=== PATIENT | male | born 1965 | race Caucasian/White ===

== ENCOUNTER 2019-03-23 03:42 | Observation (INO) ==
--- NOTE | 2019-03-23 04:29 | Emergency Department Note ---
Abdominal Pain HPI - General Chief Complaint: Constipation Stated Complaint: rectal pain Time Seen by Provider: 03/23/19 04:12 Source: patient Mode of arrival: ambulatory Limitations: no limitations - History of Present Illness HPI Narrative: Patient states that days ago he had a hard bowel movement and had severe pain near the perianal region. States subsequently he has had small stools but has been extremely painful with motion and bearing down. Been no bleeding no drainage patient normally has no problems with constipation issues.The pulse is 102 the respirations are 18 blood pressure 135/104 pulse ox is 91/92% rates the pain is an 05/20 - Related Data Home Medications Medication Instructions Recorded Confirmed No Known Home Meds 03/23/19 03/23/19 Allergies Allergy/AdvReac Type Severity Reaction Status Date / Time morphine Allergy Verified 03/23/19 03:47 Review of Systems All systems ED: reviewed and negative except as stated. Constitutional: Denies: fever, chills Eyes: Denies: eye pain ENT ED: Denies: ear pain Gastrointestinal: Reports: as per HPI, constipation, other Genitourinary: Reports: as per HPI. Denies: dysuria, frequency, urgency Abdominal Pain PMH - Past Medical History Medical history: Reports: non-contributory Family history: Reports: non-contributory - Social History Smoking status: Current every day smoker Alcohol use: Reports: Unknown Drug use: Reports: unknown Physical Exam Limitations: no limitations General appearance: alert Head: atraumatic, normocephalic Eye: Present: normal appearance, PERRL ENT: normal exam, normal oropharynx, mucous membranes moist Neck: Present: normal inspection, full ROM, trachea midline Chest: Present: normal inspection, symmetric chest wall rise. Absent: tendernes s Respiratory: Present: normal lung sounds bilaterally. Absent: respiratory distress, rales/crackles, wheezes Cardiovascular: Present: regular rate, normal rhythm. Absent: bradycardia, tachycardia Abdominal: Present: soft, normal bowel sounds. Absent: distention, tenderness, guarding, rebound, rigidity Rectal: Present: normal inspection, normal rectal tone, heme (-) stool, tenderness ( appears to have a perirectal abscess tenderness and bulging the lateral aspect of the rectal area) : Present: normal inspection Extremities: Present: normal inspection, full ROM Back: Present: normal inspection, full ROM Course Vital Signs Temperature 99.0 F 03/23/19 03:43 Pulse Rate 102 H 03/23/19 03:43 Respiratory Rate 18 03/23/19 03:43 Blood Pressure 135/104 03/23/19 03:43 Pulse Oximetry (%) 91 03/23/19 03:43 Temperature 99.0 F 03/23/19 03:43 Pulse Rate 76 03/23/19 04:23 Respiratory Rate 18 03/23/19 04:23 Blood Pressure 126/78 03/23/19 04:23 Pulse Oximetry (%) 92 03/23/19 04:23 Abdominal Pain - MDM Narrative Medical decision making narrative: Two-view abdomen negative. Patient on rectal exam reveals a perirectal abscess per Dr. Arambula contacted patient to be admitted - Lab Data Result diagrams: 03/23/19 04:00 Disposition Pt seen by TRUCKER/PA only: No Clinical Impression: Perirectal abscess Disposition: Xfer As Outpt/Obs ([facility]) Condition: Fair
[2019-03-23] MEDS ORDERED: ONDANSETRON 4 MG/2 ML VIAL IV ONE (04:37)
--- NOTE | 2019-03-23 04:38 | XRay Report ---
CLINICAL INFORMATION: LRQ abd pain COMPARISON: None. FINDINGS: The stool gas pattern is unremarkable. There is no free air, soft tissue mass, organomegaly or pathologic calcification. IMPRESSION: Normal abdomen Interpreted and Authenticated by: Sidney Smart 03/23/19
[2019-03-23] MEDS ORDERED: 0.9 % SODIUM CHLORIDE 1,000 ML IV ONE (04:39)
[2019-03-23] MEDS ORDERED: HYDROmorphone 2 MG/ML VIAL IV SCH (04:45)
[2019-03-23] MEDS ORDERED: cefTRIAXone 1 GM VIAL IV SCH (04:45)
[2019-03-23 04:47] LABS: Basophils # (Auto) 0 K/mcL (0.0-0.3); Basophils % (Auto) 0.1 % (0.0-2.0); Eosinophils # (Auto) 0.2 K/mcL (0.0-0.7); Eosinophils % (Auto) 1.3 % (0.0-7.0); Granulocytes % (Auto) 79.4 % (38.0-78.0); Hematocrit 46.1 % (41.0-55.0); Hemoglobin 16.2 g/dL (13.5-16.5); Lymphocytes # (Auto) 1.4 K/mcL (1.5-4.8); Lymphocytes % (Auto) 11.1 % (15.5-49.0); Mean Cell Volume 92.5 fL (80.0-100.0); Mean Corpuscular HGB Conc 35.3 g/dL (31.0-36.0); Mean Platelet Volume 7.6 fL (7.4-10.4); Monocytes % (Auto) 8.1 % (1.0-12.0); Platelet Count 259 K/mcL (140-440); RBC 4.98 M/mcL (4.50-5.90); Red Cell Distribution Width 11.5 % (11.5-14.5); WBC 12.6 K/mcL (4.5-11.0)
[2019-03-23] MEDS ORDERED: ACETAMINOPHEN 325 MG TABLET PO ONE ×2 (04:55→05:01)
[2019-03-23] MEDS: 0.9 % SODIUM CHLORIDE 1,000 ML IV SCH ×3 (06:10→17:11)
[2019-03-23] MEDS ORDERED: PANTOPRAZOLE 40 MG VIAL IV SCH (07:30)
[2019-03-23] MEDS: HYDROmorphone 2 MG/ML VIAL IV PRN ×3 (07:54→13:18)
--- NOTE | 2019-03-23 08:21 | XRay Report ---
CLINICAL INFORMATION: pre-op COMPARISON: None. FINDINGS: The heart size, mediastinum and pulmonary vessels are unremarkable. The lungs are clear. There are no effusions.. IMPRESSION: Normal chest. Interpreted and Authenticated by: Sidney Smart 03/23/19
[2019-03-23 08:32] LABS: ALT/SGPT 28 U/l (0-40); AST/SGOT 17 U/l (0-37); Albumin 3.6 gm/dL (3.2-5.2); Albumin/Globulin Ratio 1.2 (1.0-2.3); Alkaline Phosphatase 61 U/L (39-117); Bilirubin,Total 0.7 mg/dL (0.0-1.0); Blood Urea Nitrogen 8 mg/dl (6-20); Calcium 8.4 mg/dl (8.6-10.4); Carbon Dioxide 23 mmol/L (22-30); Chloride 104 mmol/L (96-108); Glomerular Filtration Rate 114; Glucose 96 mg/dL (70-105); Potassium 3.8 mmol/L (3.3-5.1); Sodium 140 mmol/L (133-145)
[2019-03-23 08:52] LABS: Prothrombin Time 13.7 sec (11.9-14.5)
--- NOTE | 2019-03-23 12:19 | General Surg History&Physical ---
History of Present Illness Patient information: Note initiated : 03/23/19 at 12:17 pm Service Date, if different from initiated Date: [] Patient: Ej Higgins 54 y/o M admitted on 03/23/19 for Rectal Pain. Chief Complaint: [] HPI: Mr. Higgins is a 54 year old M with history of right perirectal abscess. Patient developed some pressure-like pain with bowel movements on Wednesday of this week. It continued to increase in intensity The following day. On yesterday the pain became much worse and he noted that the swelling was much larger. He finally came to the emergency room late last night and has been admitted with a large perirectal abscess on the right side. He is afebrile but does have mild leukocytosis. Past History Past medical history: No chronic medical illness Past surgical history: Leeanna fundoplication 2016 Past family history: Mother alive age 74 in good health. Father age 67 due to ruptured abdominal aortic aneurysm. 2 brothers alive and well Past social history: Smokes one half pack of cigarettes per day for many years. Drinks wine regularly. Denies drug use. Single Medications and Allergies Home Medications Medication Instructions Recorded Confirmed Type No Known Home Meds 03/23/19 03/23/19 History Allergies Allergy/AdvReac Type Severity Reaction Status Date / Time morphine AdvReac Mild Vomiting Verified 03/23/19 07:21 Exam Temp Pulse Resp BP Pulse Ox 98 F 73 16 123/81 94 03/23/19 11:08 03/23/19 11:08 03/23/19 11:08 03/23/19 11:08 03/23/19 11:08 - General physical appearance well developed, well nourished, no distress - Eyes PERRL, normal ocular movement - ENT normal pinna, normal nares, normal mucosa, no hearing loss, no congestion - Head Head exam IM: Present: atraumatic, normocephalic - Neck no masses, no bruits, trachea midline, no lymphadenopathy, no venous distension - Cardiovascular Cardiovascular exam IM: Present: normal rate and rhythm - Respiratory normal expansion, normal respiratory effort, clear to percussion, clear to auscultation - Abdomen Abdomen: Present: soft, non tender, bowel sounds Hernia: Present: none - Genitourinary Present: normal penis with no external lesions - Rectum Rectum: Present: no hemorrhoids, no tenderness, no masses, no bleeding, other (marked swelling right perirenal space extending into right buttock with hardening and severe tenderness; mild swelling of hemorrhoids side of inflammatory lesion) - Integumentary Present: no rash, no growths, no abnormal pigmentation - Neurologic Present: normal coordination, normal sensation - Musculoskeletal Present: normal gait, normal posture - Psychiatric Present: oriented to time, oriented to person, oriented to place, speech is normal, memory intact Assessment and Plan (1) Perirectal abscess Patient is counseled for I&D of perirectal abscess and it will be done later today Status: Acute
[2019-03-23] MEDS ORDERED: SCOPOLAMINE 1 PATCH PATCH TOPICAL PRN (12:31)
[2019-03-23] MEDS ORDERED: IPRATROPIUM/ALBUTEROL 3 ML AMPUL.NEB NEB PRN ×2 (12:31→14:47)
[2019-03-23] MEDS ORDERED: fentaNYL 100 MCG/2 ML VIAL IV ONE (14:00)
[2019-03-23] MEDS ORDERED: PROPOFOL 200 MG/20 ML VIAL IV ONE (14:00)
[2019-03-23] MEDS ORDERED: HYDROmorphone 2 MG/ML VIAL ONE (14:00)
[2019-03-23] MEDS ORDERED: GLYCOPYRROLATE 0.2 MG/ML VIAL IV ONE (14:00)
[2019-03-23] MEDS ORDERED: KETAMINE HCL 50 MG/ML ML ONE (14:00)
[2019-03-23] MEDS ORDERED: ONDANSETRON 4 MG/2 ML VIAL ONE (14:00)
[2019-03-23] MEDS ORDERED: DEXAMETHASONE 10 MG/ML VIAL ONE (14:00)
[2019-03-23] MEDS ORDERED: LIDOCAINE HCL/PF 100 MG/5 ML SYRINGE IV ONE (14:00)
[2019-03-23] MEDS ORDERED: MIDAZOLAM 5 MG/5 ML VIAL ONE (14:00)
[2019-03-23 14:41] LABS: Appearance,Urine HAZY; Bacteria,Urine 0 /hpf (0); Bilirubin,Urine NEG (NEG); Color,Urine YELLOW; Culture Indicated,Urine NO; Glucose,Urine (UA) NEGATIVE (NEG); Ketones,Urine 20 mg/dL (NEG); Leukocyte Esterase,Urine 25 /uL (NEG); Mucus,Urine MANY /hpf (0); Nitrate,Urine NEG (NEG); Protein,Urine NEG (NEG); Specific Gravity,Urine 1.021 (1.000-1.035); Urine Blood NEG mg/dL (<0.03); Urine RBC 1 /hpf (0-1); Urine Squamous Epithelial Cell 1 /hpf (0-4); Urine WBC 6 /hpf (0-4); Urobilinogen,Urine NEG (NEG)
--- NOTE | 2019-03-23 14:41 | Brief Operative Note ---
Date of procedure: 03/23/19 Pre-op diagnosis: perirectal abscess,right Post-op diagnosis: other (perirectal abscess,right) Procedure: incision and drainage of perirectal abscess Grafts/Implants: No Anesthesia: GLMA Findings: large abscess of right perirectal space Complications: none Surgeon: Darrell Arambula Specimens Removed/Pathology: other (aerobic and anaerobic cultures) Condition: stable Disposition: PACU
[2019-03-23] MEDS ORDERED: ONDANSETRON 4 MG/2 ML VIAL IV PRN ×3 (14:44→16:21)
[2019-03-23] MEDS ORDERED: HYDROmorphone 2 MG/ML VIAL IV PRN ×2 (14:44→16:21)
[2019-03-23] MEDS ORDERED: MEPERIDINE 25 MG/ML SYRINGE IV PRN (14:47)
[2019-03-23] MEDS ORDERED: NALOXONE HCL 0.4 MG/ML VIAL IV PRN (14:47)
[2019-03-23] MEDS ORDERED: METOPROLOL TARTRATE 5 MG/5 ML VIAL IV PRN (14:47)
[2019-03-23] MEDS ORDERED: fentaNYL 100 MCG/2 ML VIAL IV PRN (14:47)
[2019-03-23] MEDS ORDERED: METHOCARBAMOL 1,000 MG/10 ML VIAL IV PRN (14:47)
[2019-03-23] MEDS ORDERED: ATROPINE SULFATE 0.4 MG/ML VIAL IV PRN (14:47)
[2019-03-23] MEDS ORDERED: PROMETHAZINE 25 MG/ML VIAL IV PRN (14:47)
[2019-03-23] MEDS ORDERED: KETOROLAC 30 MG/ML VIAL IV PRN (14:47)
[2019-03-23] MEDS ORDERED: ePHEDrine 50 MG/ML AMPUL IV PRN (14:47)
[2019-03-23] MEDS ORDERED: diphenhydrAMINE 50 MG/ML VIAL IV PRN (14:47)
[2019-03-23] MEDS ORDERED: FLUMAZENIL 0.1 MG/ML ML IV PRN (14:47)
[2019-03-23] MEDS ORDERED: LACTATED RINGERS 1,000 ML IV SCH (15:00)
[2019-03-23] MEDS ORDERED: PIPERACILLIN SODIUM/TAZOBACTAM 3.375 GM in DEXTROSE 5% IN WATER 50 ML IV SCH (15:00)
--- NOTE | 2019-03-23 15:14 | XRay Report ---
CLINICAL INFORMATION: Post op resp rate COMPARISON: 03/23/2019 FINDINGS: Mild airspace disease in left base is new - atelectasis versus infiltrate. The cardiomediastinal silhouette and pulmonary vessels are normal. No effusion IMPRESSION: Small infiltrate or atelectasis developing in the left base Interpreted and Authenticated by: Sidney Smart 03/23/19
[2019-03-23] MEDS: PANTOPRAZOLE 40 MG VIAL IV SCH (17:11)
[2019-03-23] MEDS: PIPERACILLIN SODIUM/TAZOBACTAM 3.375 GM in DEXTROSE 5% IN WATER 50 ML IV SCH (19:52)
[2019-03-23] MEDS ORDERED: oxyCODONE/APAP 10/325MG TABLET PO ONE (22:53)
[2019-03-23] MEDS: oxyCODONE/APAP 10/325MG TABLET PO PRN (23:03)
[2019-03-24] MEDS: PIPERACILLIN SODIUM/TAZOBACTAM 3.375 GM in DEXTROSE 5% IN WATER 50 ML IV SCH ×5 (00:15→23:44)
[2019-03-24] MEDS: 0.9 % SODIUM CHLORIDE 1,000 ML IV SCH ×4 (02:56→23:42)
[2019-03-24 05:36] LABS: Basophils # (Auto) 0 K/mcL (0.0-0.3); Basophils % (Auto) 0 % (0.0-2.0); Eosinophils # (Auto) 0 K/mcL (0.0-0.7); Eosinophils % (Auto) 0 % (0.0-7.0); Granulocytes % (Auto) 88.4 % (38.0-78.0); Hematocrit 40.7 % (41.0-55.0); Hemoglobin 13.6 g/dL (13.5-16.5); Lymphocytes # (Auto) 0.9 K/mcL (1.5-4.8); Lymphocytes % (Auto) 6.7 % (15.5-49.0); Mean Cell Volume 95.3 fL (80.0-100.0); Mean Corpuscular HGB Conc 33.5 g/dL (31.0-36.0); Mean Platelet Volume 7.8 fL (7.4-10.4); Monocytes # (Auto) 0.7 K/mcL (0.1-0.9); Monocytes % (Auto) 4.9 % (1.0-12.0); Platelet Count 235 K/mcL (140-440); RBC 4.27 M/mcL (4.50-5.90); WBC 13.9 K/mcL (4.5-11.0)
[2019-03-24] MEDS: oxyCODONE/APAP 10/325MG TABLET PO PRN ×3 (07:05→23:43)
[2019-03-24] MEDS: PANTOPRAZOLE 40 MG VIAL IV SCH ×2 (07:06→16:38)
--- NOTE | 2019-03-24 07:35 | XRay Report ---
CLINICAL INFORMATION: Shortness of breath COMPARISON: 03/23/2019 FINDINGS: The heart is minimally enlarged but unchanged. Mediastinum and pulmonary vessels are normal. Minor atelectasis in the left base has improved. The remaining lungs are clear. No effusions IMPRESSION: Improvement in minor left basilar atelectasis Interpreted and Authenticated by: Sidney Smart 03/24/19
--- NOTE | 2019-03-24 12:57 | General Surgery Progress Note ---
Subjective Patient reports: feels better, pain is less, tolerating a regular diet, flatus, no bowel movement, afebrile Narrative: Note initiated : 03/24/19 at 12:54 pm Service Date, if different from initiated Date: [] Patient: Ej Higgins 54 y/o M admitted on 03/23/19 for Rectal Pain. Chief Complaint: [patient is stable. He has much less pain. He does have some moderate incisional discomfort. Drainage is decreasing. Cultures are still pending. White blood count 13.9, hemoglobin 13.6.] Objective Temp Pulse Resp BP Pulse Ox 98.7 F 51 L 20 101/62 95 03/24/19 11:39 03/24/19 04:00 03/24/19 11:39 03/24/19 11:39 03/24/19 11:39 - Additional Data Intake & Output - Last 24 hours: Intake & Output 03/22/19 03/23/19 03/24/19 03/25/19 05:59 05:59 05:59 05:59 Intake Total 899 5375 50 Output Total 2880 Balance 899 2495 50 Weight 196 lb 8 oz 199 lb 8 oz - General physical appearance well developed, well nourished, no distress - Eyes PERRL, normal ocular movement - ENT normal pinna, normal nares, normal mucosa, no hearing loss, no congestion - Neck no masses, no bruits, trachea midline, no lymphadenopathy, no venous distension - Respiratory normal expansion, normal respiratory effort, clear to auscultation - Cardiovascular Cardiovascular exam: Present: normal rate and rhythm, RRR, +S1, +S2. Absent: JVD, tachycardia - Abdomen non tender, bowel sounds (present), surgical scars (none), masses (none) - Rectum normal sphincter tone, no masses, no bleeding, other (decreased perianal tenderness with significant reduction in induration) - Integumentary no rash, no growths, no abnormal pigmentation - Neurologic normal coordination, normal sensation - Musculoskeletal normal gait, normal posture - Psychiatric oriented to time, oriented to person, oriented to place, speech is normal, memory intact - Labs 03/24/19 04:10 03/23/19 07:26 Assessment and Plan (1) Perirectal abscess Status: Acute Assessment and plan: Continue IV antibiotics. Saline lock IV. Wait for final cultures before discharge Current Visit: Yes - Time Spent With Patient Total time spent is greater than 50% in coordination of care (as documented) at patient's floor/unit and/or counseling patient:
[2019-03-25] MEDS: PIPERACILLIN SODIUM/TAZOBACTAM 3.375 GM in DEXTROSE 5% IN WATER 50 ML IV SCH ×2 (05:12→12:13)
[2019-03-25] MEDS: oxyCODONE/APAP 10/325MG TABLET PO PRN ×2 (05:15→12:29)
[2019-03-25 06:25] LABS: Basophils # (Auto) 0 K/mcL (0.0-0.3); Basophils % (Auto) 0.4 % (0.0-2.0); Eosinophils # (Auto) 0.1 K/mcL (0.0-0.7); Eosinophils % (Auto) 1.6 % (0.0-7.0); Granulocytes % (Auto) 60.5 % (38.0-78.0); Hemoglobin 12.7 g/dL (13.5-16.5); Lymphocytes # (Auto) 2.4 K/mcL (1.5-4.8); Lymphocytes % (Auto) 27.8 % (15.5-49.0); Mean Cell Volume 96.1 fL (80.0-100.0); Mean Corpuscular HGB Conc 33.5 g/dL (31.0-36.0); Mean Platelet Volume 8.1 fL (7.4-10.4); Monocytes # (Auto) 0.9 K/mcL (0.1-0.9); Monocytes % (Auto) 9.7 % (1.0-12.0); Platelet Count 233 K/mcL (140-440); RBC 3.95 M/mcL (4.50-5.90); Red Cell Distribution Width 12.4 % (11.5-14.5); WBC 8.8 K/mcL (4.5-11.0)
[2019-03-25] MEDS: PANTOPRAZOLE 40 MG VIAL IV SCH (06:57)
[2019-03-25] MEDS: 0.9 % SODIUM CHLORIDE 1,000 ML IV SCH (09:00)
--- NOTE | 2019-03-25 12:50 | Discharge Summary ---
Providers - Providers Patient information: Note initiated : 03/25/19 at 12:47 pm Service Date, if different from initiated Date: [] Patient: Ej Higgins 54 y/o M admitted on 03/23/19 for Rectal Pain. Chief Complaint: [] Date of admission: 03/23/19 Discharge date: 03/25/19 Attending physician: Darrell Arambula Hospitalization Hospital course: 54-year-old male who was admitted on 20 February with enlarged perirectal abscess. He underwent wide excision and drainage. Cultures grew out a gram-negative bacillus. He had elevated white blood count yesterday but it has returned to normal. Cultures have not returned definitively, but he will be discharged home on Levaquin for 7 days. He is otherwise stable. Discharge diagnosis: right perirectal abscess Reason for admission: , rectal pain & perirectal abscess Procedures: Excision, drainage and debridement of right perirectal abscess Pertinent studies/significant findings: None Complications: None Exam Temp Pulse Resp BP Pulse Ox 97.8 F 54 L 20 124/85 98 03/25/19 12:00 03/25/19 04:00 03/25/19 12:00 03/25/19 12:00 03/25/19 12:00 - General physical appearance well developed, well nourished, no distress - Eyes PERRL, normal ocular movement - ENT normal pinna, normal nares, normal mucosa, no hearing loss, no congestion - Head Head exam IM: Present: atraumatic, normocephalic - Neck no masses, no bruits, trachea midline, no lymphadenopathy, no venous distension - Cardiovascular Cardiovascular exam IM: Present: normal rate and rhythm - Respiratory normal expansion, normal respiratory effort, clear to percussion, clear to auscultation - Abdomen Abdomen: Present: soft, non tender, bowel sounds Hernia: Present: none - Genitourinary Present: normal penis with no external lesions - Rectum Rectum: Present: normal sphincter tone, no hemorrhoids, no masses, other (significant decrease in induration and swelling of right pararectal space; moderate amount of serosanguineous drainage) - Integumentary Present: no rash, no growths, no abnormal pigmentation - Neurologic Present: normal coordination, normal sensation - Musculoskeletal Present: normal gait, normal posture - Psychiatric Present: oriented to time, oriented to person, oriented to place, speech is normal, memory intact Discharge Plan - Patient/Caregiver Discharge Instructions Activity: increase activity as tolerated Diet: Regular Diet Additional Instructions: May shower as needed. Use perineal pads to protect clothing. Follow-up in the office in 2 weeks - Follow up Plan Follow up with: Darrell Arambula MD [Physician] - 04/10/19 9:15 am Disposition: Home, Self-Care Prognosis: Good Rehab Potential: Good I certify that the patient requires SNF services.: No Overall status at discharge: patient is progressing back to baseline Pending Studies Resuscitation Status Full Code Diet Regular Diet Start Bree Mar 23 1443 Sodium Chloride (Sodium Chloride 0.9%) 1,000 mls @ 100 mls/hr IV .Q10H ANTONIO Last Admin: 03/25/19 09:00 Dose: Not Given Documented by: Admin: 03/24/19 23:42 Dose: 100 mls/hr Documented by: Infusion: 03/24/19 23:42 Dose: 100 mls/hr Documented by: Admin: 03/24/19 13:46 Dose: 100 mls/hr Documented by: Infusion: 03/24/19 13:46 Dose: 0 mls/hr Documented by: Admin: 03/24/19 12:32 Dose: Not Given Documented by: Admin: 03/24/19 02:56 Dose: 100 mls/hr Documented by: Infusion: 03/24/19 02:56 Dose: 100 mls/hr Documented by: Admin: 03/23/19 17:11 Dose: 100 mls/hr Documented by: VENITA Piperacillin Sod/Tazobactam (Sod 3.375 gm/ Dextrose) 50 mls @ 100 mls/hr IV Q6H ANTONIO; Protocol Last Admin: 03/25/19 12:13 Dose: 100 mls/hr Documented by: Infusion: 03/25/19 05:42 Dose: 100 mls/hr Documented by: Admin: 03/25/19 05:12 Dose: 100 mls/hr Documented by: Infusion: 03/25/19 00:37 Dose: 0 mls/hr Documented by: Admin: 03/24/19 23:44 Dose: 100 mls/hr Documented by: Infusion: 03/24/19 20:20 Dose: 0 mls/hr Documented by: Admin: 03/24/19 17:09 Dose: 100 mls/hr Documented by: Infusion: 03/24/19 13:00 Dose: 0 mls/hr Documented by: Admin: 03/24/19 12:23 Dose: 100 mls/hr Documented by: Infusion: 03/24/19 07:07 Dose: 0 mls/hr Documented by: Admin: 03/24/19 06:14 Dose: 100 mls/hr Documented by: Infusion: 03/24/19 00:45 Dose: 100 mls/hr Documented by: Admin: 03/24/19 00:15 Dose: 100 mls/hr Documented by: Infusion: 03/23/19 20:22 Dose: 100 mls/hr Documented by: Admin: 03/23/19 19:52 Dose: 100 mls/hr Documented by: OSVALDO Oxycodone/Acetaminophen (Percocet 10-325mg) 1 tab PO Q4HP PRN PRN Reason: PAIN LEVEL 3-6 Last Admin: 03/25/19 12:29 Dose: 1 tab Documented by: Admin: 03/25/19 05:15 Dose: 1 tab Documented by: Admin: 03/24/19 23:43 Dose: 1 tab Documented by: Admin: 03/24/19 15:49 Dose: 1 tab Documented by: Admin: 03/24/19 07:05 Dose: 1 tab Documented by: Admin: 03/23/19 23:03 Dose: 1 tab Documented by: OSVALDO Pantoprazole Sodium (Protonix) 40 mg IV BIDAC ANTONIO [facility] Admin: 03/25/19 06:57 Dose: 40 mg Documented by: [email or web address] Admin: 03/24/19 16:38 Dose: 40 mg Documented by: Admin: 03/24/19 07:06 Dose: 40 mg Documented by: Admin: 03/23/19 17:11 Dose: 40 mg Documented by: VENITA Shift Summary 03/25/19 04:17 Shift Summary by Althea Tavera PT IS ALERT AND ORIENTED AND VERY PLEASANT AND COOPERATIVE WITH CARE. PT IS INDEPENDENT IN ROOM. AMBULATING IN HALLS TIMES 3 THIS SHIFT. MEDICATED X1 WITH PERCOCET FOR C/O 4/10 PAIN TO GETACHEW AREA WITH GOOD RELIEF. VOIDING PER URINAL QS YELLOW URINE. RECTAL INCISION WITH SCANT AMOUNT OF DRAINAGE. PT CHANGING GAUZE PRN. IVF RUNNING AT 100 CC/HR. VSS. RA. HOME THIS AM. Initialized on 03/25/19 04:17 - END OF NOTE
--- NOTE | 2019-04-10 15:52 | Operative Note ---
DATE OF OPERATION: 03/23/2019 PREOPERATIVE DIAGNOSIS: Perirectal abscess, right side. POSTOPERATIVE DIAGNOSIS: Right perirectal abscess. PROCEDURE: Incision and drainage of right perirectal abscess. SURGEON: Darrell Arambula M.D. FINDINGS: Large abscess of the right perirectal space. DESCRIPTION OF PROCEDURE: Under general anesthesia, the patient was placed in high lithotomy position. His perineum and perianal area were prepped and draped in a sterile field. The bulging abscess cavity of the right medial buttock was aspirated and about 20 mL of pus was removed. This was sent for routine culture for aerobic and anaerobic cultures. A 15 blade was used to dissect into the abscess cavity. Once this was placed, a grooved probe was placed, and a long wide incision was made over the dome of the abscess cavity. Finger fractionation was carried out to break up all loculations. Excess necrotic tissue was debrided with Metzenbaum scissors and discarded. The incision was irrigated with bacitracin solution, after which it was packed with two sheets of 4 x 5-inch Aquacel AG gauze. A 4 x 4 gauze and mesh briefs were placed to hold the dressing in place. The patient tolerated the procedure well. He was taken out of lithotomy position, extubated, and transferred to the postanesthetic care unit in stable, satisfactory condition. LCS:gayle Job ID: [id number] Doc ID: [id number] Darrell Arambula M.D.
== END 2019-03-25 14:30 | disposition home or self-care (01) ==
LOC: MEDSUR 03:42 → ED 03:42 → MEDSUR 05:49
PROVIDERS: ADMIT Family Medicine Adult Medicine; ATTEND Family Medicine Adult Medicine